=== PATIENT | female | born 1985 | race African-American/Black ===

== ENCOUNTER 2016-12-13 14:53 | Inpatient (IN) | payer OTHER ==
[2016-12-13] MEDS ORDERED: D5 1/2 NS 1000 ML 1,000 ML IV ONE (14:55)
[2016-12-13] MEDS ORDERED: LR 1000 ML IV 1,000 ML IV ONE (14:56)
[2016-12-13] MEDS ORDERED: PITOCIN ONE ×2 (15:09→15:26)
[2016-12-13 15:12] VITALS: BMI 29.1
[2016-12-13] MEDS ORDERED: TORADOL 30 MG VIAL ONE (15:26)
[2016-12-13] MEDS ORDERED: PITOCIN IVP ONE (15:40)
[2016-12-13] MEDS ORDERED: MOTRIN TAB 800 MG PO PRN ×2 (15:44→16:05)
[2016-12-13] MEDS ORDERED: PHENERGAN INJ 25 MG IV PRN (15:44)
[2016-12-13] MEDS ORDERED: TORADOL 15 MG VIAL IVP ONE (15:44)
[2016-12-13] MEDS ORDERED: FLUVIRIN IM ONE (15:55)
[2016-12-13] MEDS ORDERED: D5 1/2 NS 1000 ML 1,000 ML with PITOCIN 20 UNITS IV SCH ×2 (16:00)
[2016-12-13] MEDS ORDERED: D5 1/2 NS 1000 ML 1,000 ML IV SCH (16:00)
[2016-12-13] MEDS ORDERED: MILK OF MAGNESIA PO PRN ×2 (16:05→16:38)
[2016-12-13] MEDS ORDERED: DERMOPLAST SPRAY TOP PRN ×2 (16:05→16:38)
[2016-12-13] MEDS ORDERED: ADACEL TDaP IM ONE (16:05)
[2016-12-13 16:10] LABS: BASOPHILS % (AUTO) 0.3 % (0.2-1.0); EOSINOPHILS % (AUTO) 0.5 % (0.9-2.9); HEMATOCRIT 35.3 % (36.0-47.0); HEMOGLOBIN 12.2 g/dL (12.0-16.0); LYMPHOCYTES # (AUTO) 0.7 X10^3/uL (1.3-2.9); LYMPHOCYTES % (AUTO) 10.3 % (21.0-51.0); MEAN CORPUSCULAR HEMOGLOBIN 30.5 pg (27.0-34.0); MEAN CORPUSCULAR HGB CONC 34.5 g/dL (33.0-35.0); MEAN CORPUSCULAR VOLUME 88.4 fL (80.0-100.0); MONOCYTES # (AUTO) 0.5 x10^3/uL (0.3-0.8); NEUTROPHILS # (AUTO) 5.6 x10^3/uL (2.2-4.8); NEUTROPHILS % (AUTO) 81.9 % (42.0-75.0); PLATELET COUNT 122 X10^3/uL (150.0-450.0); WHITE BLOOD COUNT 6.9 X10^3/uL (3.6-10.0)
[2016-12-13 16:15] LABS: BLOOD UREA NITROGEN 3 mg/dL (7-18); CALCIUM 8.4 mg/dL (8.5-10.1); CHLORIDE 103 mmol/L (98-107); COR NA(FOR HYPERGLY) 138 mmol/L (136-145); CREATININE 0.56 mg/dL (0.55-1.02); SODIUM 137 mmol/L (136-145); eGFR BLACK RACES > 60 (>60); eGFR NON BLACK RACES > 60 (>60)
--- NOTE | 2016-12-13 16:17 | DR.OB ---
OB Quick Note - Assessment/Plan Assessment/Plan: Delivery Note HYDROPULPER 12/13/16 at 3:15pm Patient complete and pushing. AROM with moderate meconium. Head delivered over intact perineum. No nuchal cord. Nose and mouth bulb suctioned. Body delivered over intact perineum. Cord clamped x 2 and cut. handed to attendant. Cord sent for gases. True knot noted in cord. Placenta delivered spontaneously / intact / 3 vessel cord. No CVX / vaginal / perineal tears noted. Viable male infant, VTX/OA, wt=6'0" and 9/9, stable to NBN. Mother stable to RR. [id number].
[2016-12-13] MEDS ORDERED: HYPERRHO S/D (or RHOGAM) IM PRN (16:38)
[2016-12-13] MEDS ORDERED: AMBIEN PO PRN (16:38)
[2016-12-13] MEDS: MOTRIN TAB 800 MG PO PRN (18:20)
[2016-12-13] MEDS: ZANTAC PO SCH (20:34)
[2016-12-14 05:21] LABS: HEMATOCRIT 31.1 % (36.0-47.0); HEMOGLOBIN 10.8 g/dL (12.0-16.0)
[2016-12-14] MEDS: PRENATAL PLUS PO SCH (09:01)
[2016-12-14] MEDS: ZANTAC PO SCH ×2 (09:01→20:26)
[2016-12-14] MEDS ORDERED: FLUVIRIN IM ONE (20:00)
[2016-12-14] MEDS: MOTRIN TAB 800 MG PO PRN (20:26)
[2016-12-15] MEDS: MOTRIN TAB 800 MG PO PRN (04:06)
[2016-12-15] MEDS: ZANTAC PO SCH (08:32)
[2016-12-15] MEDS: PRENATAL PLUS PO SCH (08:32)
[2016-12-15 08:45] VITALS: BP 105/58
== END 2016-12-15 12:15 | disposition home or self-care (01) | DRG 775 ==
LOC: ER 14:53 → LD 15:00 → MED/SURG 16:37
PROVIDERS: ADMIT Specialist; ATTEND Specialist
PROC: 10E0XZZ Delivery of Products of Conception, External Approach (ICD-10-PCS; principal; 2016-12-13)
PROC: 3E0234Z Introduction of Serum, Toxoid and Vaccine into Muscle, Percutaneous Approach (ICD-10-PCS; 2016-12-13)
DX: O36.0910 Maternal care for other rhesus isoimmunization, first trimester, not applicable or unspecified (principal); Z37.0 Single live birth; O09.33 Supervision of pregnancy with insufficient antenatal care, third trimester; Z3A.37 37 weeks gestation of pregnancy; Z23 Encounter for immunization
CPT/HCPCS: 36415; 59409; 80048; 80307; 83020; 85014; 85018; 85025; 86592; 86850; 86900; 86901; 90686; 96374; 99284; A4216; A4222; S0197; G0434; J1885; J2590; J2790; J7042; J7120